=== PATIENT | male | born 2000 | race Caucasian/White ===

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

== ENCOUNTER 2019-07-31 11:14 | Emergency (ER) | payer OTHER, BC ==
[2019-07-31 11:34] VITALS: BP 150/89; PULSE 104
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
== END 2019-07-31 14:43 | disposition home or self-care (01) ==
LOC: JD.ED 11:14
DX: S13.4XXA Sprain of ligaments of cervical spine, initial encounter (principal); V64.5XXA Driver of heavy transport vehicle injured in collision with heavy transport vehicle or bus in traffic accident, initial encounter; Y92.410 Unspecified street and highway as the place of occurrence of the external cause
CPT/HCPCS: 99283